=== PATIENT | male | born 1985 | race Caucasian/White ===

== ENCOUNTER 2019-04-29 10:47 | Emergency (ER) | payer MEDICAID, OTHER ==
[~2019-04-29] VITALS: Ht 170.2 cm; Wt 86.2 kg
[2019-04-29 11:07] VITALS: BP 117/76
[2019-04-29] MEDS: IBUPROFEN 400 MG TAB PO ONE (13:37)
[2019-04-29] MEDS: ACETAMINOPHEN 325 MG TAB PO ONE (13:38)
[2019-04-29] MEDS: DICYCLOMINE HCL LIQUID 20 MG, ALUMINUM HYD/MAG/SIMETHICONE 30 ML, LIDOCAINE VISCOUS 2% ... PO ONE ×3 (13:40)
[2019-04-29 13:49] VITALS: BP 118/71
== END 2019-04-29 13:49 | disposition home or self-care (01) ==
LOC: MED 10:47
DX: A08.4 Viral intestinal infection, unspecified (principal)
CPT/HCPCS: 99284